=== PATIENT | female | born 1955 | race Caucasian/White ===

== ENCOUNTER 2019-03-28 22:24 | Emergency (ER) | payer MEDICARE, OTHER ==
--- NOTE | 2019-03-28 22:50 | ED Physician Chart ---
ED Chief Complaint/HPI - Patient Information Date Seen:: 03/28/19 Time Seen:: 22:45 Chief Complaint:: acting out at the custodial History of Present Illness:: this is a 63 yo custodial patient sent here for evaluation and treatment. she refuses labs, x-rays and has requested to return to her custodial....willing to sign out ama. she is oriented times four and demanded to b sent back yon. Allergies:: Allergies Allergy/AdvReac Type Severity Reaction Status Date / Time No Known Allergies Allergy Verified 03/28/19 22:40 Historian:: Patient, Medical Records Review:: Nurse's Note Reviewed ED Review of Systems - Review of Systems General/Constitutional: No fever, No chills, No weight loss, No weakness, No diaphoresis, No edema, No loss of appetite Skin: No skin lesions, No rash, No bruising Head: No headache, No light-headedness Eyes: No loss of vision, No pain, No diplopia ENT: No earache, No nasal drainage, No sore throat, No tinnitus Neck: No neck pain, No swelling, No thyromegaly, No stiffness, No mass noted Cardio Vascular: No chest pain, No palpitations, No PND, No orthopnea, No edema Pulmonary: No SOB, No cough, No sputum, No wheezing GI: No nausea, No vomiting, No diarrhea, No pain, No melena, No hematochezia, No constipation, No hematemesis G/U: No dysuria, No frequency, No hematuria Musculoskeletal: No bone or joint pain, No back pain, No muscle pain Endocrine: No polyuria, No polydipsia Psychiatric: Prior psych history, No prior psych history, No depression, Anxiety , No anxiety, No suicidal ideation Hematopoietic: No bruising, No lymphadenopathy Allergic/Immuno: No urticaria, No angioedema Neurological: No syncope, No focal symptoms, No weakness, No paresthesia, No headache, No seizure, No dizziness, No confusion, No vertigo ED Past Medical History - Past Medical History Past Medical History: Arthritis, Other (depression and bipolar) ED Physical Exam - Physical Examination General/Constitutional: Awake, Well-developed, well-nourished, Alert, No distress, GCS 15, Non-toxic appearing, Ambulatory Other Gen/Cons comments:: loud and uncooperative. Head: Atraumatic Eyes: Lids, conjuctiva normal, PERRL, EOMI Skin: Nl inspection, No rash, No skin lesions, No ecchymosis, Well hydrated, No lymphadenopathy ENMT: External ears, nose nl, Nasal exam nl, Lips, teeth, gums nl Neck: Nontender, Full ROM w/o pain, No JVD, No nuchal rigidity, No bruit, No mass, No stridor Respiratory: Nl effort/Exclusion, Clear to Auscultation, No Wheeze/Rhonchi/Rales Cardio Vascular: RRR, No murmur, gallop, rubs, NL S1 S2 GI: No tenderness/rebounding/guarding, No organomegaly, No hernia, Normal BS's, Nondistended, No mass/bruits, No McBurney tenderness : No CVA tenderness Extremities: No tenderness or effusion, Full ROM, normal strength in all extremities, No edema, Normal digits & nails Neuro/Psych: Alert/oriented, DTR's symmetric, Normal sensory exam, Normal motor strength, Judgement/insight normal, Mood normal (depressed), Normal gait, No focal deficits Misc: Normal back, No paraspinal tenderness ED Assessment - Assessment General Assessment: psychosis ED Septic Shock - . Is Septic Shock (SBP<90, OR Lactate>4 mmol\L) present?: No ED Reassessment (Disposition) - Reassessment Reassessment Condition:: Unchanged - Diagnosis Diagnosis:: bipolar depression - Aftercare/Follow up Instructions Aftercare/Follow-Up Instructions:: Counseled pt regarding lab results/diagnosis & need follow up, Refer to Discharge Instructions, Counseled pt & family regarding lab results/diagnosis & need follow up - Patient Disposition Discharge/Transfer:: returned to [facility] Condition at Disposition:: Unchanged
== END 2019-03-28 22:50 ==
LOC: ER 22:24
DX: F32.9 Major depressive disorder, single episode, unspecified (principal); F29 Unspecified psychosis not due to a substance or known physiological condition; M19.90 Unspecified osteoarthritis, unspecified site

== ENCOUNTER 2019-03-30 15:18 | Inpatient (IN) | payer MEDICARE, OTHER ==
[2019-03-30 15:46] LABS: % BASOPHILS 0.3 % (0.0-2.0); % EOSINOPHILS 2.2 % (0.0-5.0); % LYMPHOCYTES 26.1 % (20.0-50.0); % MONOCYTES 5.8 % (2.0-10.0); % NEUTROPHILS 65.6 % (40.0-80.0); EOSINOPHILE ABSOLUTE 0.2 Th/cmm (0.1-0.4); HEMATOCRIT 37.7 % (41.0-60); HEMOGLOBIN 12.9 gm/dL (12-16); LYMPHOCYTE ABSOLUTE 2.8 Th/cmm (1.5-3.0); MEAN CELL VOLUME 91.1 fl (81-100); MEAN CORPUSCULAR HEMOGLOBIN 31.2 pg (27.0-31.0); MEAN CORPUSCULAR HGB CONC 34.2 pg (28.0-36.0); MONOCYTE ABSOLUTE 0.6 Th/cmm (0.3-1.0); NEUTROPHILE ABSOLUTE 7.1 Th/cmm (1.8-8.0); PLATELET COUNT 243 Th/cmm (150-400); RED BLOOD COUNT 4.14 Mil/cmm (3.80-5.10); WHITE BLOOD COUNT 10.7 Th/cmm (4.8-10.8)
[2019-03-30 16:03] LABS: ALB/GLOB RATIO 1.5 (1.0-1.8); ALBUMIN 3.8 gm/dL (3.7-5.3); ALKALINE PHOSPHATASE 73 U/L (34-104); ANION GAP 10.7 (7.0-16.0); BILIRUBIN,TOTAL 0.2 mg/dL (0.3-1.0); BUN - UREA NITROGEN 10 mg/dL (7-25); CALCIUM SERUM 8.7 mg/dL (8.6-10.3); CARBON DIOXIDE 27.3 mEq/L (21.0-31.0); CHLORIDE 102 mEq/L (98-107); CHOLESTEROL 170 mg/dL (<200); CREATININE - SERUM 0.7 mg/dL (0.6-1.2); GFR AFRICAN-AMERICAN > 60.0 ml/min (>90); GFR NON AFRICAN-AMERICAN > 60.0 ml/min; GLUCOSE 95 mg/dL (70-105); HDL -HIGH DENSITY LIPOPROTEIN 60 mg/dL (23-92); SGOT 13 U/L (13-39); SGPT/ALT 11 U/L (7-52); SODIUM SERUM 136 mEq/L (136-145); TOTAL PROTEIN,SERUM 6.3 gm/dL (6.0-8.3); TRIGLYCERIDES 196 mg/dL (<150)
[2019-03-30] MEDS ORDERED: oxyCODONE 5 mg IR Tab PO ONE (17:06)
--- NOTE | 2019-03-30 17:34 | ED Physician Chart ---
ED Chief Complaint/HPI - Patient Information Date Seen:: 03/30/19 Time Seen:: 16:00 Chief Complaint:: increase aggressive behavior History of Present Illness:: ongoing problem states told needs to have meds adjusted Allergies:: Allergies Allergy/AdvReac Type Severity Reaction Status Date / Time No Known Allergies Allergy Verified 03/30/19 15:30 Vitals:: Vital Signs - 8 hr 03/30/19 15:41 Temp 98.1 F HR 93 RR 18 BP 125/86 O2 Sat % 98 Historian:: Patient Review:: Nurse's Note Reviewed ED Review of Systems - Review of Systems General/Constitutional: No fever Skin: No skin lesions Head: No headache Eyes: No loss of vision ENT: No earache Neck: No neck pain Cardio Vascular: No chest pain Pulmonary: No SOB GI: No vomiting Musculoskeletal: No bone or joint pain Endocrine: No polyuria Psychiatric: Prior psych history Hematopoietic: No bruising Allergic/Immuno: No urticaria Neurological: No syncope ED Past Medical History - Past Medical History Past Medical History: Other (schizo bipolar) Family Medical History - Family Member Mother History Unknown: Yes ED Physical Exam - Physical Examination General/Constitutional: Alert, No distress, GCS 15, Non-toxic appearing, Ambulatory Eyes: Lids, conjuctiva normal Skin: Nl inspection ENMT: External ears, nose nl Neck: Nontender Respiratory: Nl effort/Exclusion Cardio Vascular: RRR GI: No tenderness/rebounding/guarding : No CVA tenderness Extremities: No tenderness or effusion Neuro/Psych: Alert/oriented, No focal deficits Misc: Normal back ED Labs/Radiology/EKG Results - Lab Results Results: Laboratory Tests 03/30/19 03/30/19 15:43 15:43 WBC 10.7 RBC 4.14 Hgb 12.9 Hct 37.7 L MCV 91.1 MCH 31.2 H MCHC Differential 34.2 RDW 16.0 Plt Count 243 MPV 8.2 Neutrophils % 65.6 Lymphocytes % 26.1 Monocytes % 5.8 Eosinophils % 2.2 Basophils % 0.3 Sodium 136 Potassium 4.0 Chloride 102 Carbon Dioxide 27.3 Anion Gap 10.7 BUN 10 Creatinine 0.7 Est GFR ( Amer) > 60.0 Est GFR (Non-Af Amer) > 60.0 BUN/Creatinine Ratio 14.3 Glucose 95 Calcium 8.7 Total Bilirubin 0.2 L AST 13 ALT 11 Alkaline Phosphatase 73 Total Protein 6.3 Albumin 3.8 Globulin 2.5 Albumin/Globulin Ratio 1.5 Triglycerides 196 H Cholesterol 170 LDL Cholesterol Direct 90 HDL Cholesterol 60 ED Assessment - Assessment General Assessment: needs psyche inpatient ED Septic Shock - . Is Septic Shock (SBP<90, OR Lactate>4 mmol\L) present?: No - <6hrs of presentation: Vital Signs: Vital Signs - 8 hr 03/30/19 15:41 Temp 98.1 F HR 93 RR 18 BP 125/86 O2 Sat % 98 ED Reassessment (Disposition) - Patient Disposition Discharge/Transfer:: Acute Care w/in this hosp (stable transfer to inpatient)
[2019-03-30] MEDS ORDERED: OXYCODONE HCL 10 MG PO PRN (18:19)
[2019-03-30] MEDS ORDERED: Non-Formulary Item 1 EA (Gabapentin [Neurontin] 600 MG) PO SCH (18:30)
--- NOTE | 2019-03-30 18:42 | History & Physical ---
ADMIT DATE: HISTORY OF PRESENT ILLNESS: The patient is a 63-year-old female with long history of COPD, degenerative joint disease, a recent pelvic bone fracture, psychosis, admitted to [facility] under Dr. Wisdom's service for evaluation and treatment. The patient has chest pain, shortness of breath. Still has pain on the pelvic area. PAST MEDICAL HISTORY: Significant for COPD, pelvic bone fracture, chronic pain. PAST SURGICAL HISTORY: No recent surgery. ALLERGIES: None. MEDICATIONS: Follow admission reconciliation. SOCIAL HISTORY: Chronic smoker. No alcohol or drug. FAMILY HISTORY: Noncontributory. REVIEW OF SYSTEMS: RENAL SYSTEM: No history of chronic immune disorder. CARDIOVASCULAR SYSTEM: No coronary artery disease. ENDOCRINE SYSTEM: No diabetes or thyroid problem. GASTROINTESTINAL SYSTEM: No upper or lower GI bleed. NEUROLOGICAL SYSTEM: No seizure disorder. SKELETOMUSCULAR SYSTEM: She has recent pelvic bone fracture. HEMATOLOGICAL: No bleeding tendencies. RESPIRATORY SYSTEM: She has COPD. GENITOURINARY SYSTEM: No hematuria. PHYSICAL EXAMINATION: GENERAL: She is awake, alert, oriented. VITAL SIGNS: Temperature 98.1, heart rate 80, blood pressure 120/76. Chest, mild diminished breathing sound. HEART: S1, S2 normal. ABDOMEN: Soft, bowel sounds positive. EXTREMITIES: No edema. NEUROLOGICAL: She is awake, alert. Gait unstable. LABORATORY DATA: White blood cell 10.7, hemoglobin 12.9, hematocrit 37.7, platelet 243. Sodium 136, potassium 4, BUN 10, creatinine 0.7. ASSESSMENT: 1. Chronic obstructive pulmonary disease. 2. Recent pelvic bone fracture. 3. Chronic back pain. 4. Psychosis. PLAN: The patient in the hospital under Dr. Wisdom's service. Medical problem addressed during hospitalization is psychosis. Medical problems addressed at discharge cessation of smoking and chronic back pain. The patient is medically stable for activity. Thank you Dr. Wisdom for asking me to see the patient. The patient is a full code. JOB# [id number]
[2019-03-30] MEDS ORDERED: Maalox 30 mL Cup PO PRN (20:08)
[2019-03-30] MEDS ORDERED: Magnesium Hydroxide (MOM) 30 mL UDC PO PRN (20:08)
[2019-03-30 21:53] VITALS: BP 141/81
[2019-03-31] MEDS: oxyCODONE 5 mg IR Tab PO PRN ×4 (02:12→21:12)
[2019-03-31] MEDS: Multivitamin Tab PO SCH (08:36)
--- NOTE | 2019-03-31 22:48 | Internal Medicine Prog Note ---
Internal Medicine Subjective - Subjective Service Date: 03/31/19 Patient seen and examined:: with staff Patient is:: awake, verbal, in bed, confused Per staff patient has:: no adverse event Internal Medicine Objective - Results Result Diagrams: 03/30/19 15:43 03/30/19 15:43 Recent Labs: Laboratory Last Values WBC 10.7 Th/cmm (4.8-10.8) 03/30/19 15:43 RBC 4.14 Mil/cmm (3.80-5.10) 03/30/19 15:43 Hgb 12.9 gm/dL (12-16) 03/30/19 15:43 Hct 37.7 % (41.0-60) L 03/30/19 15:43 MCV 91.1 fl (81-100) 03/30/19 15:43 MCH 31.2 pg (27.0-31.0) H 03/30/19 15:43 MCHC Differential 34.2 pg (28.0-36.0) 03/30/19 15:43 RDW 16.0 % (11.5-20.0) 03/30/19 15:43 Plt Count 243 Th/cmm (150-400) 03/30/19 15:43 MPV 8.2 fl 03/30/19 15:43 Neutrophils % 65.6 % (40.0-80.0) 03/30/19 15:43 Lymphocytes % 26.1 % (20.0-50.0) 03/30/19 15:43 Monocytes % 5.8 % (2.0-10.0) 03/30/19 15:43 Eosinophils % 2.2 % (0.0-5.0) 03/30/19 15:43 Basophils % 0.3 % (0.0-2.0) 03/30/19 15:43 Sodium 136 mEq/L (136-145) 03/30/19 15:43 Potassium 4.0 mEq/L (3.5-5.1) 03/30/19 15:43 Chloride 102 mEq/L (98-107) 03/30/19 15:43 Carbon Dioxide 27.3 mEq/L (21.0-31.0) 03/30/19 15:43 Anion Gap 10.7 (7.0-16.0) 03/30/19 15:43 BUN 10 mg/dL (7-25) 03/30/19 15:43 Creatinine 0.7 mg/dL (0.6-1.2) 03/30/19 15:43 Est GFR ( Amer) > 60.0 ml/min (>90) 03/30/19 15:43 Est GFR (Non-Af Amer) > 60.0 ml/min 03/30/19 15:43 BUN/Creatinine Ratio 14.3 03/30/19 15:43 Glucose 95 mg/dL (70-105) 03/30/19 15:43 Calcium 8.7 mg/dL (8.6-10.3) 03/30/19 15:43 Total Bilirubin 0.2 mg/dL (0.3-1.0) L 03/30/19 15:43 AST 13 U/L (13-39) 03/30/19 15:43 ALT 11 U/L (7-52) 03/30/19 15:43 Alkaline Phosphatase 73 U/L (34-104) 03/30/19 15:43 Total Protein 6.3 gm/dL (6.0-8.3) 03/30/19 15:43 Albumin 3.8 gm/dL (3.7-5.3) 03/30/19 15:43 Globulin 2.5 gm/dL 03/30/19 15:43 Albumin/Globulin Ratio 1.5 (1.0-1.8) 03/30/19 15:43 Triglycerides 196 mg/dL (<150) H 03/30/19 15:43 Cholesterol 170 mg/dL (<200) 03/30/19 15:43 LDL Cholesterol Direct 90 mg/dL (75-193) 03/30/19 15:43 HDL Cholesterol 60 mg/dL (23-92) 03/30/19 15:43 TSH 0.47 uIU/ml (0.34-5.60) 03/30/19 15:43 RPR NONREACTIVE (NONREACTIVE) 03/30/19 15:43 - Physical Exam Vitals and I&O: Vital Signs Temp 97 F 03/31/19 20:11 Pulse 91 03/31/19 20:11 Resp 20 03/31/19 20:11 BP 155/79 03/31/19 20:11 Pulse Ox 95 03/31/19 20:11 Intake & Output 03/31/19 03/31/19 04/01/19 06:59 18:59 06:59 Intake Total 240 900 120 Balance 240 900 120 Weight (lbs) 90.718 kg Intake: Oral 240 900 120 Other: # Voids 1 3 3 # Bowel Movements 0 0 Active Medications: Current Medications Acetaminophen (Tylenol) 650 mg PO Q6H PRN PRN Reason: Pain (Mild) Stop: 05/29/19 18:18 Last Admin: 03/31/19 11:48 Dose: 650 mg Al Hydrox/Mg Hydrox/Simethicone (Maalox) 30 ml PO Q4HR PRN PRN Reason: GI DISTRESS Stop: 05/29/19 20:07 Gabapentin (Neurontin) 600 mg PO Q8HR MONA Stop: 05/29/19 20:59 Last Admin: 03/31/19 20:57 Dose: 600 mg Ibuprofen (Motrin) 600 mg PO Q8H PRN PRN Reason: Pain (Moderate) Stop: 05/29/19 18:18 Last Admin: 03/31/19 13:44 Dose: 600 mg Lorazepam (Ativan) 0.5 mg PO Q4HR PRN; Protocol PRN Reason: Agitation Stop: 04/29/19 20:07 Last Admin: 03/31/19 20:59 Dose: 0.5 mg Magnesium Hydroxide (Milk Of Magnesia) 30 ml PO HS PRN PRN Reason: Constipation Multivitamins/Vitamin C (Theragran) 1 tab PO DAILY MONA Stop: 05/30/19 08:59 Last Admin: 03/31/19 08:36 Dose: 1 tab Oxycodone HCl (Oxycontin) 10 mg PO 1730 [facility] Stop: 05/29/19 17:29 Last Admin: 03/31/19 16:45 Dose: Not Given Oxycodone HCl (Oxycodone Ir) 10 mg PO Q6H PRN PRN Reason: SEVERE PAIN (LEVEL 7-10) Stop: 05/29/19 22:14 Last Admin: 03/31/19 21:12 Dose: 10 mg Risperidone (Risperdal) 1 mg PO DAILY [facility]; Protocol Stop: 05/30/19 08:59 Last Admin: 03/31/19 08:36 Dose: 1 mg Risperidone (Risperdal) 2 mg PO HS [facility]; Protocol Stop: 05/30/19 20:59 Last Admin: 03/31/19 21:01 Dose: 2 mg Trazodone HCl (Desyrel) 50 mg PO HS [facility]; Protocol Stop: 05/30/19 20:59 Last Admin: 03/31/19 20:58 Dose: 50 mg Venlafaxine HCl (Effexor) 75 mg PO DAILY [facility]; Protocol Stop: 05/30/19 08:59 Last Admin: 03/31/19 08:36 Dose: 75 mg General: alert HEENT: NC/AT, PERRLA, EOMI, anicteric sclerae, throat clear Neck: Supple, No JVD, No thyromegaly, +2 carotid pulse wo bruit, No LAD Lungs: CTAB Cardiovascular: RRR, Normal S1, Normal S2, without murmur Abdomen: soft, non-tender, non-distended Extremities: clear Neurological: alert, unsteady Internal Medicine Assmt/Plan - Assessment Assessment: 1.HTN. 2.COPD. 3.DJD. 4.PSYCHOSIS - Plan Plan: CONTINUE ON CURRENT MEDICATION AND DIET.
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
[2019-04-01] MEDS: oxyCODONE 5 mg IR Tab PO PRN ×2 (05:01→11:32)
[2019-04-01] MEDS: Multivitamin Tab PO SCH (08:36)
[2019-04-01] MEDS ORDERED: Haloperidol Lactate 5 mg/mL 1mL Vial ONE (11:45)
[2019-04-01] MEDS ORDERED: Haloperidol Lactate 5 mg/mL 1mL Vial IM ONE ×2 (11:50→16:27)
--- NOTE | 2019-04-01 19:58 | Internal Medicine Prog Note ---
Internal Medicine Subjective - Subjective Service Date: 04/01/19 Patient seen and examined:: without staff (SHE FEELS WELL) Patient is:: awake, verbal, in bed, confused Per staff patient has:: no adverse event Internal Medicine Objective - Results Result Diagrams: 03/30/19 15:43 03/30/19 15:43 Recent Labs: Laboratory Last Values WBC 10.7 Th/cmm (4.8-10.8) 03/30/19 15:43 RBC 4.14 Mil/cmm (3.80-5.10) 03/30/19 15:43 Hgb 12.9 gm/dL (12-16) 03/30/19 15:43 Hct 37.7 % (41.0-60) L 03/30/19 15:43 MCV 91.1 fl (81-100) 03/30/19 15:43 MCH 31.2 pg (27.0-31.0) H 03/30/19 15:43 MCHC Differential 34.2 pg (28.0-36.0) 03/30/19 15:43 RDW 16.0 % (11.5-20.0) 03/30/19 15:43 Plt Count 243 Th/cmm (150-400) 03/30/19 15:43 MPV 8.2 fl 03/30/19 15:43 Neutrophils % 65.6 % (40.0-80.0) 03/30/19 15:43 Lymphocytes % 26.1 % (20.0-50.0) 03/30/19 15:43 Monocytes % 5.8 % (2.0-10.0) 03/30/19 15:43 Eosinophils % 2.2 % (0.0-5.0) 03/30/19 15:43 Basophils % 0.3 % (0.0-2.0) 03/30/19 15:43 Sodium 136 mEq/L (136-145) 03/30/19 15:43 Potassium 4.0 mEq/L (3.5-5.1) 03/30/19 15:43 Chloride 102 mEq/L (98-107) 03/30/19 15:43 Carbon Dioxide 27.3 mEq/L (21.0-31.0) 03/30/19 15:43 Anion Gap 10.7 (7.0-16.0) 03/30/19 15:43 BUN 10 mg/dL (7-25) 03/30/19 15:43 Creatinine 0.7 mg/dL (0.6-1.2) 03/30/19 15:43 Est GFR ( Amer) > 60.0 ml/min (>90) 03/30/19 15:43 Est GFR (Non-Af Amer) > 60.0 ml/min 03/30/19 15:43 BUN/Creatinine Ratio 14.3 03/30/19 15:43 Glucose 95 mg/dL (70-105) 03/30/19 15:43 Calcium 8.7 mg/dL (8.6-10.3) 03/30/19 15:43 Total Bilirubin 0.2 mg/dL (0.3-1.0) L 03/30/19 15:43 AST 13 U/L (13-39) 03/30/19 15:43 ALT 11 U/L (7-52) 03/30/19 15:43 Alkaline Phosphatase 73 U/L (34-104) 03/30/19 15:43 Total Protein 6.3 gm/dL (6.0-8.3) 03/30/19 15:43 Albumin 3.8 gm/dL (3.7-5.3) 03/30/19 15:43 Globulin 2.5 gm/dL 03/30/19 15:43 Albumin/Globulin Ratio 1.5 (1.0-1.8) 03/30/19 15:43 Triglycerides 196 mg/dL (<150) H 03/30/19 15:43 Cholesterol 170 mg/dL (<200) 03/30/19 15:43 LDL Cholesterol Direct 90 mg/dL (75-193) 03/30/19 15:43 HDL Cholesterol 60 mg/dL (23-92) 03/30/19 15:43 TSH 0.47 uIU/ml (0.34-5.60) 03/30/19 15:43 RPR NONREACTIVE (NONREACTIVE) 03/30/19 15:43 - Physical Exam Vitals and I&O: Vital Signs Temp 98.4 F 04/01/19 14:13 Pulse 94 04/01/19 14:13 Resp 20 04/01/19 14:13 BP 148/80 04/01/19 14:13 Pulse Ox 97 04/01/19 14:13 Intake & Output 04/01/19 04/01/19 04/02/19 06:59 18:59 06:59 Intake Total 120 Balance 120 Intake: Oral 120 Other: # Voids 3 # Bowel Movements 0 Active Medications: Current Medications Acetaminophen (Tylenol) 650 mg PO Q6H PRN PRN Reason: Pain (Mild) Stop: 05/29/19 18:18 Last Admin: 04/01/19 02:26 Dose: 650 mg Al Hydrox/Mg Hydrox/Simethicone (Maalox) 30 ml PO Q4HR PRN PRN Reason: GI DISTRESS Stop: 05/29/19 20:07 Gabapentin (Neurontin) 600 mg PO Q8HR [facility]A Stop: 05/29/19 20:59 Last Admin: 04/01/19 13:00 Dose: 600 mg Ibuprofen (Motrin) 600 mg PO Q8H PRN PRN Reason: Pain (Moderate) Stop: 05/29/19 18:18 Last Admin: 04/01/19 08:36 Dose: 600 mg Lorazepam (Ativan) 1 mg PO Q4HR PRN; Protocol PRN Reason: Agitation Stop: 04/29/19 20:07 Last Admin: 04/01/19 16:56 Dose: 1 mg Magnesium Hydroxide (Milk Of Magnesia) 30 ml PO HS PRN PRN Reason: Constipation Multivitamins/Vitamin C (Theragran) 1 tab PO DAILY [facility] Stop: 05/30/19 08:59 Last Admin: 04/01/19 08:36 Dose: 1 tab Oxycodone HCl (Oxycontin) 10 mg PO 1730 [facility] Stop: 05/29/19 17:29 Last Admin: 04/01/19 16:57 Dose: 10 mg Oxycodone HCl (Oxycodone Ir) 10 mg PO Q6H PRN PRN Reason: SEVERE PAIN (LEVEL 7-10) Stop: 05/29/19 22:14 Last Admin: 04/01/19 11:32 Dose: 10 mg Risperidone (Risperdal) 2 mg PO HS [facility]; Protocol Stop: 05/30/19 20:59 Last Admin: 03/31/19 21:01 Dose: 2 mg Risperidone (Risperdal) 2 mg PO DAILY [facility]; Protocol Stop: 06/01/19 08:59 Trazodone HCl (Desyrel) 50 mg PO HS [facility]; Protocol Stop: 05/30/19 20:59 Last Admin: 03/31/19 20:58 Dose: 50 mg Venlafaxine HCl (Effexor) 75 mg PO DAILY [facility]; Protocol Stop: 05/30/19 08:59 Last Admin: 04/01/19 08:35 Dose: 75 mg General: alert HEENT: NC/AT, PERRLA, EOMI, anicteric sclerae, throat clear Neck: Supple, No JVD, No thyromegaly, +2 carotid pulse wo bruit, No LAD Lungs: CTAB Cardiovascular: RRR, Normal S1, Normal S2, without murmur Abdomen: soft, non-tender, non-distended Extremities: clear Neurological: alert, unsteady Internal Medicine Assmt/Plan - Assessment Assessment: 1.HTN. 2.COPD. 3.DJD. 4.PSYCHOSIS - Plan Plan: CONTINUE ON CURRENT MEDICATION AND DIET.
--- NOTE | 2019-04-01 23:58 | Progress Notes ---
DATE: 04/01/2019 SUBJECTIVE: The patient slept for about 5-6 hours, easily agitated, irritated, demanding, yelling to the top of her lungs, cursing at staff, telling staff that she is a customer and they have to listen to everything she has to say, banging, screaming, flailing her arms, trying to hit staff, given emergency order of medications earlier, ongoing safety concerns. The patient is extremely agitated, extremely aggressive, very impulsive, highly unpredictable, given dosing of Haldol and Benadryl. She will likely need a medication adjustment. PLAN: I will be increasing her dosing, for example, of Ativan. JOB# [id number]
[2019-04-02] MEDS: oxyCODONE 5 mg IR Tab PO PRN ×2 (04:23→10:51)
[2019-04-02] MEDS: Multivitamin Tab PO SCH (09:07)
--- NOTE | 2019-04-02 17:48 | Internal Medicine Prog Note ---
Internal Medicine Subjective - Subjective Service Date: 04/02/19 Patient seen and examined:: without staff (she feels well) Patient is:: awake, verbal, in bed, confused Per staff patient has:: no adverse event Internal Medicine Objective - Results Result Diagrams: 03/30/19 15:43 03/30/19 15:43 Recent Labs: Laboratory Last Values WBC 10.7 Th/cmm (4.8-10.8) 03/30/19 15:43 RBC 4.14 Mil/cmm (3.80-5.10) 03/30/19 15:43 Hgb 12.9 gm/dL (12-16) 03/30/19 15:43 Hct 37.7 % (41.0-60) L 03/30/19 15:43 MCV 91.1 fl (81-100) 03/30/19 15:43 MCH 31.2 pg (27.0-31.0) H 03/30/19 15:43 MCHC Differential 34.2 pg (28.0-36.0) 03/30/19 15:43 RDW 16.0 % (11.5-20.0) 03/30/19 15:43 Plt Count 243 Th/cmm (150-400) 03/30/19 15:43 MPV 8.2 fl 03/30/19 15:43 Neutrophils % 65.6 % (40.0-80.0) 03/30/19 15:43 Lymphocytes % 26.1 % (20.0-50.0) 03/30/19 15:43 Monocytes % 5.8 % (2.0-10.0) 03/30/19 15:43 Eosinophils % 2.2 % (0.0-5.0) 03/30/19 15:43 Basophils % 0.3 % (0.0-2.0) 03/30/19 15:43 Sodium 136 mEq/L (136-145) 03/30/19 15:43 Potassium 4.0 mEq/L (3.5-5.1) 03/30/19 15:43 Chloride 102 mEq/L (98-107) 03/30/19 15:43 Carbon Dioxide 27.3 mEq/L (21.0-31.0) 03/30/19 15:43 Anion Gap 10.7 (7.0-16.0) 03/30/19 15:43 BUN 10 mg/dL (7-25) 03/30/19 15:43 Creatinine 0.7 mg/dL (0.6-1.2) 03/30/19 15:43 Est GFR ( Amer) > 60.0 ml/min (>90) 03/30/19 15:43 Est GFR (Non-Af Amer) > 60.0 ml/min 03/30/19 15:43 BUN/Creatinine Ratio 14.3 03/30/19 15:43 Glucose 95 mg/dL (70-105) 03/30/19 15:43 Calcium 8.7 mg/dL (8.6-10.3) 03/30/19 15:43 Total Bilirubin 0.2 mg/dL (0.3-1.0) L 03/30/19 15:43 AST 13 U/L (13-39) 03/30/19 15:43 ALT 11 U/L (7-52) 03/30/19 15:43 Alkaline Phosphatase 73 U/L (34-104) 03/30/19 15:43 Total Protein 6.3 gm/dL (6.0-8.3) 03/30/19 15:43 Albumin 3.8 gm/dL (3.7-5.3) 03/30/19 15:43 Globulin 2.5 gm/dL 03/30/19 15:43 Albumin/Globulin Ratio 1.5 (1.0-1.8) 03/30/19 15:43 Triglycerides 196 mg/dL (<150) H 03/30/19 15:43 Cholesterol 170 mg/dL (<200) 03/30/19 15:43 LDL Cholesterol Direct 90 mg/dL (75-193) 03/30/19 15:43 HDL Cholesterol 60 mg/dL (23-92) 03/30/19 15:43 TSH 0.47 uIU/ml (0.34-5.60) 03/30/19 15:43 RPR NONREACTIVE (NONREACTIVE) 03/30/19 15:43 - Physical Exam Vitals and I&O: Vital Signs Temp 97.2 F 04/02/19 15:26 Pulse 93 04/02/19 15:26 Resp 18 04/02/19 15:26 BP 130/76 04/02/19 15:26 Pulse Ox 96 04/02/19 15:26 Intake & Output 04/01/19 04/02/19 04/02/19 18:59 06:59 18:59 Intake Total 120 Balance 120 Intake: Oral 120 Other: # Voids 3 Active Medications: Current Medications Acetaminophen (Tylenol) 650 mg PO Q6H PRN PRN Reason: Pain (Mild) Stop: 05/29/19 18:18 Last Admin: 04/02/19 15:05 Dose: 650 mg Al Hydrox/Mg Hydrox/Simethicone (Maalox) 30 ml PO Q4HR PRN PRN Reason: GI DISTRESS Stop: 05/29/19 20:07 Gabapentin (Neurontin) 600 mg PO Q8HR MONA Stop: 05/29/19 20:59 Last Admin: 04/02/19 13:00 Dose: 600 mg Ibuprofen (Motrin) 600 mg PO Q8H PRN PRN Reason: Pain (Moderate) Stop: 05/29/19 18:18 Last Admin: 04/02/19 17:01 Dose: 600 mg Lorazepam (Ativan) 1 mg PO Q4HR PRN; Protocol PRN Reason: Agitation Stop: 04/29/19 20:07 Last Admin: 04/02/19 15:05 Dose: 1 mg Magnesium Hydroxide (Milk Of Magnesia) 30 ml PO HS PRN PRN Reason: Constipation Multivitamins/Vitamin C (Theragran) 1 tab PO DAILY MONA Stop: 05/30/19 08:59 Last Admin: 04/02/19 09:07 Dose: 1 tab Oxycodone HCl (Oxycontin) 10 mg PO 1730 MONA Stop: 05/29/19 17:29 Last Admin: 04/02/19 17:00 Dose: 10 mg Oxycodone HCl (Oxycodone Ir) 10 mg PO Q6H PRN PRN Reason: SEVERE PAIN (LEVEL 7-10) Stop: 05/29/19 22:14 Last Admin: 04/02/19 10:51 Dose: 10 mg Risperidone (Risperdal) 2 mg PO HS MONA; Protocol Stop: 05/30/19 20:59 Last Admin: 04/01/19 21:22 Dose: 2 mg Risperidone (Risperdal) 2 mg PO DAILY MONA; Protocol Stop: 06/01/19 08:59 Last Admin: 04/02/19 09:00 Dose: 2 mg Trazodone HCl (Desyrel) 50 mg PO HS MONA; Protocol Stop: 05/30/19 20:59 Last Admin: 04/01/19 21:23 Dose: 50 mg Venlafaxine HCl (Effexor) 75 mg PO DAILY MONA; Protocol Stop: 05/30/19 08:59 Last Admin: 04/02/19 09:08 Dose: 75 mg General: alert HEENT: NC/AT, PERRLA, EOMI, anicteric sclerae, throat clear Neck: Supple, No JVD, No thyromegaly, +2 carotid pulse wo bruit, No LAD Lungs: CTAB Cardiovascular: RRR, Normal S1, Normal S2, without murmur Abdomen: soft, non-tender, non-distended Extremities: clear Neurological: alert, unsteady Internal Medicine Assmt/Plan - Assessment Assessment: 1.HTN. 2.COPD. 3.DJD. 4.PSYCHOSIS - Plan Plan: CONTINUE ON CURRENT MEDICATION AND DIET. Nutritional Asmnt/Malnutr-PDOC - Dietary Evaluation Malnutrition Findings (Please click <Entered> for more info): Nutritional Asmnt/Malnutrition Start: 04/02/19 13: 11 Text: Status: Active Freq: Protocol: Document 04/02/19 13:11 CHRISTY (Rec: 04/02/19 13:15 CHRISTY [email or web address]) Nutritional Asmnt/Malnutrition Patient General Information Nutritional Screening Moderate Risk Diagnosis Psychosis Pertinent Medical Hx/Surgical Hx COPD, Degenerative joint disease, recent pelvic bone fracture, psychosis, chronic pain, Schizo bipolar Subjective Information Pt is a 63-year-old female admitted on 03/30 c/o increased aggressive behavior. Per Meal/ Nutrition Activity Record, Pt PO intake 100% meals since admission. HT: 5 WT: 200 LB (90.91 kg) ADJ BW: 63.66 kg BMI: 39.10 (Obese) GI: WNL, Soft, Non-Tender BM: Not noted I/O: 120/Not Noted Skin: WNL, Intact Nawaf: 20 Diet Order: Regular Estimated Energy Needs: (Obese , ADJ BW) 4889-9878 kcals (20-25 kcals/ kg) 51-58g Pro (0.8-0.9 g/kg) 9553-6254 ml (25-30 ml/kg) Pt is eating 100% of meals Per Meal/Nutrition Activity Record. Dietary is currently providing an estimated 2613 kcals and 114 gm Pro to meet 100% kcal and 100% Pro needs. Current Diet Order/ Nutrition Support Regular Pertinent Medications Maalox (PRN), MOM (PRN), Theragran Pertinent Labs 03/30: Hgb/Hct 12.9/37.7 Nutritional Hx/Data Height 1.52 m Height (Calculated Centimeters) 152.4 Current Weight (lbs) 90.718 kg Weight (Calculated Kilograms) 90.7 Weight (Calculated Grams) 78400.5 Div[place] Body Weight 45.5 kg % Divide Body Weight 200 Body Mass Index (BMI) 39.0 Weight Status Obese GI Symptoms GI Symptoms None Last BM Not noted Skin Integrity/Comment: WNL, Intact Nawaf: 20 Current %PO Good (75-100%) Estimated Nutritional Goals BEE in Kcals: Adj wt of IBW Calories/Kcals/Kg 20-25 Kcals Calculated 3425-3942 Protein: Adj wt of IBW Protein g/k.8-0.9 Protein Calculated 51-58 Fluid: ml 4736-0950 ml (25-30 ml/kg) Nutritional Problem No current Nutrition Prob Problem No nutrition diagnosis at this time. Etiology N/A Signs/Symptoms: N/A Malnutrition Related to Morbid Obesity Malnutrition related to morbid obesity No Intervention/Recommendation Comments 1.Continue with regular diet as ordered. Expected Outcomes/Goals Expected Outcomes/Goals 1.PO intake to continue to meet >75% of nutritional needs . 2.Monitor PO intake, wt, nutrition related labs, and skin integrity. 3.F/U as low risk in 7 days,
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
[2019-04-03] MEDS: oxyCODONE 5 mg IR Tab PO PRN ×4 (01:27→20:18)
[2019-04-03] MEDS: Multivitamin Tab PO SCH (08:46)
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
[2019-04-04] MEDS: oxyCODONE 5 mg IR Tab PO PRN ×2 (04:41→10:55)
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
[2019-04-04] MEDS: Multivitamin Tab PO SCH (08:30)
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
[2019-04-05] MEDS: oxyCODONE 5 mg IR Tab PO PRN ×2 (05:02→11:02)
[2019-04-05] MEDS: Multivitamin Tab PO SCH (08:01)
--- NOTE | 2019-04-05 08:05 | Progress Notes ---
DATE: 04/05/2019 SUBJECTIVE: The patient is currently calm right now, somewhat demanding, focused on pain medications, demanding staff to her medications. She wants them easily agitated, but generally more redirectable, no destruction of property, more pleasant per staff, seems to be approaching her baseline, currently on higher dose of Risperdal. Staff is noting improvement. No longer with any yelling episodes. No agitation. ASSESSMENT: The patient seems to be improving. PLAN: We will add on the side of caution, monitor for further 24 hours. JOB# [id number]
--- NOTE | 2019-04-05 16:17 | General Progress Note ---
Subjective - Review of Systems Service Date: 04/05/19 Subjective: resting comfortably no distress Objective - Results Result Diagrams: 03/30/19 15:43 03/30/19 15:43 Recent Labs: Laboratory Last Values WBC 10.7 Th/cmm (4.8-10.8) 03/30/19 15:43 RBC 4.14 Mil/cmm (3.80-5.10) 03/30/19 15:43 Hgb 12.9 gm/dL (12-16) 03/30/19 15:43 Hct 37.7 % (41.0-60) L 03/30/19 15:43 MCV 91.1 fl (81-100) 03/30/19 15:43 MCH 31.2 pg (27.0-31.0) H 03/30/19 15:43 MCHC Differential 34.2 pg (28.0-36.0) 03/30/19 15:43 RDW 16.0 % (11.5-20.0) 03/30/19 15:43 Plt Count 243 Th/cmm (150-400) 03/30/19 15:43 MPV 8.2 fl 03/30/19 15:43 Neutrophils % 65.6 % (40.0-80.0) 03/30/19 15:43 Lymphocytes % 26.1 % (20.0-50.0) 03/30/19 15:43 Monocytes % 5.8 % (2.0-10.0) 03/30/19 15:43 Eosinophils % 2.2 % (0.0-5.0) 03/30/19 15:43 Basophils % 0.3 % (0.0-2.0) 03/30/19 15:43 Sodium 136 mEq/L (136-145) 03/30/19 15:43 Potassium 4.0 mEq/L (3.5-5.1) 03/30/19 15:43 Chloride 102 mEq/L (98-107) 03/30/19 15:43 Carbon Dioxide 27.3 mEq/L (21.0-31.0) 03/30/19 15:43 Anion Gap 10.7 (7.0-16.0) 03/30/19 15:43 BUN 10 mg/dL (7-25) 03/30/19 15:43 Creatinine 0.7 mg/dL (0.6-1.2) 03/30/19 15:43 Est GFR ( Amer) > 60.0 ml/min (>90) 03/30/19 15:43 Est GFR (Non-Af Amer) > 60.0 ml/min 03/30/19 15:43 BUN/Creatinine Ratio 14.3 03/30/19 15:43 Glucose 95 mg/dL (70-105) 03/30/19 15:43 Calcium 8.7 mg/dL (8.6-10.3) 03/30/19 15:43 Total Bilirubin 0.2 mg/dL (0.3-1.0) L 03/30/19 15:43 AST 13 U/L (13-39) 03/30/19 15:43 ALT 11 U/L (7-52) 03/30/19 15:43 Alkaline Phosphatase 73 U/L (34-104) 03/30/19 15:43 Total Protein 6.3 gm/dL (6.0-8.3) 03/30/19 15:43 Albumin 3.8 gm/dL (3.7-5.3) 03/30/19 15:43 Globulin 2.5 gm/dL 03/30/19 15:43 Albumin/Globulin Ratio 1.5 (1.0-1.8) 03/30/19 15:43 Triglycerides 196 mg/dL (<150) H 03/30/19 15:43 Cholesterol 170 mg/dL (<200) 03/30/19 15:43 LDL Cholesterol Direct 90 mg/dL (75-193) 03/30/19 15:43 HDL Cholesterol 60 mg/dL (23-92) 03/30/19 15:43 TSH 0.47 uIU/ml (0.34-5.60) 03/30/19 15:43 RPR NONREACTIVE (NONREACTIVE) 03/30/19 15:43 - Physical Exam Vitals and I&O: Vital Signs Temp 97.6 F 04/05/19 14:54 Pulse 90 04/05/19 14:54 Resp 20 04/05/19 14:54 BP 132/72 04/05/19 14:54 Pulse Ox 94 04/05/19 14:54 Intake & Output 04/04/19 04/05/19 04/05/19 18:59 06:59 18:59 Intake Total 1320 240 Balance 1320 240 Intake: Oral 1080 240 Other 240 Other: # Voids 3 1 # Bowel Movements 1 Active Medications: Current Medications Acetaminophen (Tylenol) 650 mg PO Q6H PRN PRN Reason: Pain (Mild) Stop: 05/29/19 18:18 Last Admin: 04/04/19 10:54 Dose: 650 mg Al Hydrox/Mg Hydrox/Simethicone (Maalox) 30 ml PO Q4HR PRN PRN Reason: GI DISTRESS Stop: 05/29/19 20:07 Gabapentin (Neurontin) 600 mg PO Q8HR MONA Stop: 05/29/19 20:59 Last Admin: 04/05/19 13:33 Dose: 600 mg Ibuprofen (Motrin) 600 mg PO Q8H PRN PRN Reason: Pain (Moderate) Stop: 05/29/19 18:18 Last Admin: 04/05/19 13:31 Dose: 600 mg Lorazepam (Ativan) 1 mg PO Q4HR PRN; Protocol PRN Reason: Agitation Stop: 04/29/19 20:07 Last Admin: 04/05/19 13:33 Dose: 1 mg Magnesium Hydroxide (Milk Of Magnesia) 30 ml PO HS PRN PRN Reason: Constipation Multivitamins/Vitamin C (Theragran) 1 tab PO DAILY MONA Stop: 05/30/19 08:59 Last Admin: 04/05/19 08:01 Dose: 1 tab Oxycodone HCl (Oxycontin) 10 mg PO 1730 MONA Stop: 05/29/19 17:29 Last Admin: 04/04/19 17:36 Dose: 10 mg Oxycodone HCl (Oxycodone Ir) 10 mg PO Q6H PRN PRN Reason: SEVERE PAIN (LEVEL 7-10) Stop: 05/29/19 22:14 Last Admin: 04/05/19 11:02 Dose: 10 mg Risperidone (Risperdal) 2 mg PO HS [facility]; Protocol Stop: 05/30/19 20:59 Last Admin: 04/04/19 20:33 Dose: 2 mg Risperidone (Risperdal) 2 mg PO DAILY [facility]; Protocol Stop: 06/01/19 08:59 Last Admin: 04/05/19 08:05 Dose: 2 mg Trazodone HCl (Desyrel) 50 mg PO HS [facility]; Protocol Stop: 05/30/19 20:59 Last Admin: 04/04/19 20:33 Dose: 50 mg Venlafaxine HCl (Effexor Xr) 150 mg PO DAILY [facility]; Protocol Stop: 06/03/19 08:59 Last Admin: 04/05/19 08:02 Dose: 150 mg General: No acute distress HEENT: Atraumatic, PERRLA Neck: Supple, JVD, Thyromegaly Cardiovascular: Regular rate, Normal S1, Normal S2 Lungs: Clear to auscultation Abdomen: Bowel sounds, Soft Assessment/Plan - Assessment Assessment: 1.HTN. 2.COPD. 3.DJD. 4.PSYCHOSIS - Plan Plan: continue current treatment Nutritional Asmnt/Malnutr-PDOC - Dietary Evaluation Malnutrition Findings (Please click <Entered> for more info): Nutritional Asmnt/Malnutrition Start: 04/02/19 13: 11 Text: Status: Active Freq: Protocol: Document 04/02/19 13:11 CHRISTY (Rec: 04/02/19 13:15 CHRISTY [email or web address]) Nutritional Asmnt/Malnutrition Patient General Information Nutritional Screening Moderate Risk Diagnosis Psychosis Pertinent Medical Hx/Surgical Hx COPD, Degenerative joint disease, recent pelvic bone fracture, psychosis, chronic pain, Schizo bipolar Subjective Information Pt is a 63-year-old female admitted on 03/30 c/o increased aggressive behavior. Per Meal/ Nutrition Activity Record, Pt PO intake 100% meals since admission. HT: 5 WT: 200 LB (90.91 kg) ADJ BW: 63.66 kg BMI: 39.10 (Obese) GI: WNL, Soft, Non-Tender BM: Not noted I/O: 120/Not Noted Skin: WNL, Intact Nawaf: 20 Diet Order: Regular Estimated Energy Needs: (Obese , ADJ BW) 9932-8583 kcals (20-25 kcals/ kg) 51-58g Pro (0.8-0.9 g/kg) 9020-6844 ml (25-30 ml/kg) Pt is eating 100% of meals Per Meal/Nutrition Activity Record. Dietary is currently providing an estimated 2613 kcals and 114 gm Pro to meet 100% kcal and 100% Pro needs. Current Diet Order/ Nutrition Support Regular Pertinent Medications Maalox (PRN), MOM (PRN), Theragran Pertinent Labs 03/30: Hgb/Hct 12.9/37.7 Nutritional Hx/Data Height 1.52 m Height (Calculated Centimeters) 152.4 Current Weight (lbs) 90.718 kg Weight (Calculated Kilograms) 90.7 Weight (Calculated Grams) 43313.5 [place] Body Weight 45.5 kg % [place] Body Weight 200 Body Mass Index (BMI) 39.0 Weight Status Obese GI Symptoms GI Symptoms None Last BM Not noted Skin Integrity/Comment: WNL, Intact Nawaf: 20 Current %PO Good (75-100%) Estimated Nutritional Goals BEE in Kcals: Adj wt of IBW Calories/Kcals/Kg 20-25 Kcals Calculated 5161-5326 Protein: Adj wt of IBW Protein g/k.8-0.9 Protein Calculated 51-58 Fluid: ml 4524-4795 ml (25-30 ml/kg) Nutritional Problem No current Nutrition Prob Problem No nutrition diagnosis at this time. Etiology N/A Signs/Symptoms: N/A Malnutrition Related to Morbid Obesity Malnutrition related to morbid obesity No Intervention/Recommendation Comments 1.Continue with regular diet as ordered. Expected Outcomes/Goals Expected Outcomes/Goals 1.PO intake to continue to meet >75% of nutritional needs . 2.Monitor PO intake, wt, nutrition related labs, and skin integrity. 3.F/U as low risk in 7 days,
[2019-04-06] MEDS: oxyCODONE 5 mg IR Tab PO PRN ×3 (00:37→14:39)
[2019-04-06] MEDS: Multivitamin Tab PO SCH (08:17)
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
== END 2019-04-06 17:40 | DRG 885 ==
LOC: ER 15:18 → GERO 17:25
PROVIDERS: ADMIT Psychiatry & Neurology Psychiatry; ATTEND Psychiatry & Neurology Psychiatry
DX: F31.9 Bipolar disorder, unspecified (principal); J44.9 Chronic obstructive pulmonary disease, unspecified; M19.90 Unspecified osteoarthritis, unspecified site; F29 Unspecified psychosis not due to a substance or known physiological condition; G89.29 Other chronic pain; F17.210 Nicotine dependence, cigarettes, uncomplicated
CPT/HCPCS: 36415-UA; 80053-TC; 80061-TC; 83036-90; 84443-TC; 85025-TC; 86592-TC; 93005; G0410; J1200; J1630; Z7610

== ENCOUNTER 2019-10-03 18:49 | Inpatient (IN) | payer MEDICARE, OTHER ==
[2019-10-04 01:35] VITALS: BP 137/81
[2019-10-04] MEDS ORDERED: Maalox 30 mL Cup PO PRN (02:13)
[2019-10-04] MEDS ORDERED: Magnesium Hydroxide (MOM) 30 mL UDC PO PRN (02:33)
[2019-10-04] MEDS ORDERED: Fleet Enema 135 mL RC SCH (02:45)
[2019-10-04] MEDS: APAP/Oxycodone 5/325mg Tab PO PRN ×3 (04:51→20:50)
[2019-10-04] MEDS ORDERED: Haloperidol Lactate 5 mg/mL 1mL Vial IM ONE (06:00)
[2019-10-04] MEDS: Multivitamin Tab PO SCH (10:00)
[2019-10-04] MEDS ORDERED: APAP/Oxycodone 5/325mg Tab PO PRN (10:45)
[2019-10-04] MEDS ORDERED: Fleet Enema 135 mL RC PRN (13:52)
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
[2019-10-05] MEDS: APAP/Oxycodone 5/325mg Tab PO PRN ×4 (02:00→20:23)
--- NOTE | 2019-10-05 07:26 | Progress Notes ---
DATE: 10/05/2019 SUBJECTIVE: Chart reviewed and the patient interviewed. Also discussed the patient's condition with the staff and reviewed records and labs. The patient is still yelling and screaming and the patient is still argumentative. She also is intrusive to others and she is still verbally abusive to staff. The patient yesterday after being given emergency medicine Haldol, Ativan and Benadryl. She also still has severe mood swings and gets angry for no apparent reason. Otherwise, the patient is compliant with taking her medications. PATIENT'S MENTAL STATUS EXAMINATION: The patient is disheveled. Irritable mood. Disorganized thoughts. Angry and agitated. ASSESSMENT: The patient is still psychotic and agitated and can be dangerous to others. TREATMENT PLAN: We will increase Risperdal to 2 mg twice a day. Also, we will give Ativan in a dose of 1 mg every 4 hours on a p.r.n. basis. Also, continue to monitor behavior and agitation. ESTIMATED LENGTH OF STAY: 4-6 days. REASON FOR CONTINUED HOSPITAL STAY: The patient is still agitated and aggressive and argumentative. JOB# [id number]
[2019-10-05] MEDS: Multivitamin Tab PO SCH (08:31)
[2019-10-05] MEDS ORDERED: APAP/Oxycodone 5/325mg Tab PO PRN (11:37)
[2019-10-06] MEDS: APAP/Oxycodone 5/325mg Tab PO PRN ×4 (05:54→21:25)
[2019-10-06] MEDS: Multivitamin Tab PO SCH (09:07)
--- NOTE | 2019-10-06 18:54 | Progress Notes ---
DATE: 10/06/2019 SUBJECTIVE: Chart was reviewed and patient interviewed. Also discussed patient's condition with the staff and reviewed records and labs. The patient still has episodes of yelling and screaming and verbal abuse to staff, but seems to be less than yesterday since I increased her Risperdal to 2 mg twice a day. The patient also is still easily agitated and anxious. She also still has mood swings. Otherwise, patient is compliant with taking Effexor with no side effects. During interview, patient is unkempt. Anxious. Labile affect. Denies hallucination, but seems to be paranoid. ASSESSMENT: The patient is still agitated and needs close monitoring. TREATMENT PLAN: Continue to monitor patient's behavior and condition closely. Also, continue adjusting psychotropic medications. Also, patient said that she was taking Effexor XR in a dose of 150 mg and we will restart the patient on Effexor. At the same time, we will continue working on behavioral modifications and followup. ESTIMATED LENGTH OF STAY: 2-4 days. REASON TO CONTINUE HOSPITAL STAY: The patient is still agitated and psychotic and needs medication adjustment. JOB# [id number]
[2019-10-07] MEDS: APAP/Oxycodone 5/325mg Tab PO PRN ×4 (01:30→18:48)
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
[2019-10-07] MEDS: Multivitamin Tab PO SCH (09:06)
--- NOTE | 2019-10-07 11:22 | Internal Medicine Prog Note ---
Internal Medicine Subjective - Subjective Service Date: 10/07/19 Patient seen and examined:: with staff Patient is:: awake Per staff patient has:: tolerating meds Internal Medicine Objective - Physical Exam Vitals and I&O: Vital Signs Temp 97.8 F 10/07/19 05:23 Pulse 91 10/07/19 05:23 Resp 20 10/07/19 05:23 BP 159/97 10/07/19 05:23 Pulse Ox 95 10/07/19 05:23 Intake & Output 10/06/19 10/07/19 10/07/19 18:59 06:59 18:59 Intake Total 1100 Balance 1100 Intake: Oral 1100 Other: # Voids 3 # Bowel Movements 1 0 Active Medications: Current Medications Acetaminophen (Tylenol) 650 mg PO Q4HR PRN PRN Reason: Temperature Above 100 Stop: 12/03/19 02:12 Last Admin: 10/07/19 06:00 Dose: 650 mg Al Hydrox/Mg Hydrox/Simethicone (Maalox) 30 ml PO Q4HR PRN PRN Reason: GI DISTRESS Stop: 12/03/19 02:12 Last Admin: 10/07/19 00:14 Dose: 30 ml Baclofen (Lioresal) 10 mg PO Q6H PRN PRN Reason: MUSCLE PAIN Stop: 12/03/19 13:43 Last Admin: 10/07/19 04:55 Dose: 10 mg Bisacodyl (Dulcolax 10 Mg Supp) 10 mg RC Q24H PRN PRN Reason: costipation Stop: 12/03/19 02:32 Docusate Sodium (Colace) 100 mg PO DAILY [facility] Stop: 12/04/19 08:59 Last Admin: 10/07/19 09:06 Dose: 100 mg Gabapentin (Neurontin) 300 mg PO 5XD [facility] Stop: 12/03/19 13:59 Last Admin: 10/07/19 09:06 Dose: 300 mg Ibuprofen (Motrin) 800 mg PO Q8H PRN PRN Reason: MILD PAIN 1-3 Stop: 12/04/19 11:37 Last Admin: 10/07/19 09:50 Dose: 800 mg Lorazepam (Ativan) 1 mg PO Q4H PRN; Protocol PRN Reason: Anxiety Stop: 12/03/19 14:29 Last Admin: 10/07/19 10:45 Dose: 1 mg Magnesium Hydroxide (Milk Of Magnesia) 30 ml PO Q24H PRN PRN Reason: Constipation Stop: 12/03/19 02:32 Last Admin: 10/05/19 09:58 Dose: 30 ml Multivitamins/Vitamin C (Theragran) 1 tab PO DAILY [facility] Stop: 12/03/19 08:59 Last Admin: 10/07/19 09:06 Dose: 1 tab Oxycodone/Acetaminophen (Percocet 5/325mg Oral Tab) 2 tab PO Q4H PRN PRN Reason: Pain (Severe 7-10) Stop: 12/03/19 02:30 Last Admin: 10/07/19 07:41 Dose: 2 tab Oxycodone/Acetaminophen (Percocet 5/325mg Oral Tab) 1 tab PO Q4H PRN PRN Reason: MODERATE PAIN LEVEL 4 TO 6 Stop: 12/03/19 10:44 Risperidone (Risperdal) 2 mg PO DAILY [facility]; Protocol Stop: 12/06/19 08:59 Last Admin: 10/07/19 09:06 Dose: 2 mg Risperidone (Risperdal) 2 mg PO HS [facility]; Protocol Stop: 12/06/19 20:59 Sodium Phosphate (Fleet Enema) 135 ml RC Q24H PRN PRN Reason: CONSTIPATION Stop: 12/03/19 13:51 Trazodone HCl (Desyrel) 100 mg PO HS [facility]; Protocol Stop: 12/06/19 20:59 Venlafaxine HCl (Effexor Xr) 225 mg PO DAILY [facility]; Protocol Stop: 12/06/19 08:59 Last Admin: 10/07/19 09:07 Dose: 225 mg Zolpidem Tartrate (Ambien) 5 mg PO HS PRN PRN Reason: Insomnia Stop: 12/03/19 02:12 General: alert HEENT: NC/AT, PERRLA Neck: Supple Lungs: CTAB Cardiovascular: RRR, Normal S1, Normal S2, without murmur Abdomen: soft, non-tender, non-distended Neurological: alert Internal Medicine Assmt/Plan - Assessment Assessment: Psychosis Schizoaffective disorder Idiopathic peripheral autonomic neuropathy HTN LBP Artherosclerotic heart disease Hx cellulitis RLL - Plan Plan: patient is medically stable and cleared of discharged Continue current managements Monitor VS Monitor Labs Psych management per Psych Pain managment as needed. Monitor nutritional needs. Fall Precaution Continue collaboration with interdisciplinary team.
[2019-10-08] MEDS: APAP/Oxycodone 5/325mg Tab PO PRN ×3 (08:21→20:15)
[2019-10-08] MEDS: Multivitamin Tab PO SCH (09:25)
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
[2019-10-09] MEDS: APAP/Oxycodone 5/325mg Tab PO PRN ×4 (06:10→22:04)
[2019-10-09] MEDS: Multivitamin Tab PO SCH (08:18)
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
--- NOTE | 2019-10-10 07:20 | Progress Notes ---
DATE: 10/10/2019 SUBJECTIVE: The patient was seen in the room. The patient is awake, alert, appears to be guarded, easily gets frustrated with poor impulse control. Otherwise, the patient is in no acute distress. OBJECTIVE: VITAL SIGNS: Temperature 97.8, heart rate 95, blood pressure 136/83, respirations 20, 96% on room air. HEENT: Head is atraumatic and normocephalic. Eyes: Bilateral conjunctivae are clear. Bilateral pupils equal, round, reactive. NECK: Supple. No JVD. CARDIOVASCULAR: S1 and S2, without murmur. PULMONARY: Clear to auscultation. GASTROINTESTINAL: Soft and nontender without guarding. Positive bowel sounds. MUSCULOSKELETAL: No clubbing. No cyanosis noted. ASSESSMENT: 1. Schizoaffective disorder. 2. Neuropathy. 3. Hypertension. 4. Atherosclerotic heart disease. 5. Chronic pain syndrome. PLAN: We will keep the patient inpatient to Psychiatric Unit. We will follow up with a psychiatrist to monitor the patient's condition and behavior. We will put the patient on fall precautions. Treatment plans were discussed with the patient's nurse. Treatment plans were discussed with Dr. Mclaughlin. JOB# [id number]
[2019-10-10] MEDS: Multivitamin Tab PO SCH (08:36)
[2019-10-10] MEDS: APAP/Oxycodone 5/325mg Tab PO PRN ×3 (08:36→20:26)
[2019-10-11] MEDS: APAP/Oxycodone 5/325mg Tab PO PRN ×5 (01:28→19:09)
--- NOTE | 2019-10-11 02:01 | Progress Notes ---
DATE: 10/10/[address] Atkinson. IDENTIFYING DATA: A 63-year-old female with a history of schizoaffective disorder, reports that the recent augmentation of the lithium is tolerated. Mild sedation. Nursing staff reporting still flight of ideas, racing thoughts as early as yesterday, primary psychiatrist noting severe paranoia. Today on [id number] evaluation, he is very suspicious and paranoid in regards to the coronavirus she states that she has. When attempting to redirect her emotions, she becomes very irritable. ASSESSMENT AND PLAN: Schizoaffective disorder with recent augmentation of the lithium. Medication reconciliation reviewed, which includes gabapentin, lithium, Ativan as needed, oxycodone, risperidone 2 b.i.d., Effexor 225. JOB# [id number]
--- NOTE | 2019-10-11 08:04 | Progress Notes ---
DATE: 10/11/2019 SUBJECTIVE: Today on [id number] evaluation, the patient reports able to tolerate the lithium. She reports racing thoughts are less intense. ASSESSMENT AND PLAN: Schizoaffective, bipolar type. Tolerating the lithium. We will continue targeting the patient's symptoms with the recent addition of the lithium to continue to target the patient's ongoing racing thoughts. JOB# [id number]
[2019-10-11] MEDS: Multivitamin Tab PO SCH (08:42)
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
[2019-10-12] MEDS: Multivitamin Tab PO SCH (08:55)
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
[2019-10-12] MEDS: APAP/Oxycodone 5/325mg Tab PO PRN ×3 (09:37→20:16)
[2019-10-13] MEDS: APAP/Oxycodone 5/325mg Tab PO PRN ×3 (04:48→17:33)
--- NOTE | 2019-10-13 07:41 | Progress Notes ---
DATE: 10/13/2019 SUBJECTIVE: Chart was reviewed and the patient interviewed. Also discussed the patient's condition with the staff and reviewed the records and labs. The patient seems to be calmer and she is less intrusive and less irritable. She is also interacting more with peers and with others. The patient also denies any hallucinations, but she still seems to be slightly paranoid. The patient denies any thoughts of suicide or homicide. The patient is alert and oriented to time, place, person and situation. ASSESSMENT: The patient is still agitated, but seems to be less demanding and her manic behavior seems to be slightly less. TREATMENT PLAN: We will continue monitoring behavior and condition closely. Also, continue current psychotropic medications and lithium level will be done later on today. Also, continue working on her irritability and history for mood swings and her manic symptoms. ESTIMATED LENGTH OF STAY: 2-4 days. REASON FOR CONTINUED HOSPITAL STAY: The patient is still exhibiting manic symptoms and still needs close monitoring for her agitation. JOB# [id number]
[2019-10-13] MEDS: Multivitamin Tab PO SCH (08:28)
[2019-10-14] MEDS: APAP/Oxycodone 5/325mg Tab PO PRN ×4 (01:21→20:41)
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
[2019-10-14] MEDS: Multivitamin Tab PO SCH (08:18)
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
[2019-10-15] MEDS: APAP/Oxycodone 5/325mg Tab PO PRN (02:55)
--- NOTE | 2019-10-15 07:25 | Progress Notes ---
DATE: SUBJECTIVE: Chart was reviewed and patient interviewed. Also discussed patient's condition with the staff and reviewed records and labs. The patient is still having severe mood swings and she is still in irritable and angry mood. The patient also is still intrusive to others. She also still has difficulty sleeping at night. The patient also still has episodes of anger and demanding, especially when requesting medications. Otherwise, patient is compliant with taking her medications with no side effects of medications. The patient going around with her wheelchair. Vital signs are stable. [place] blood level came back to be 0.26, that was done yesterday. MENTAL STATUS EXAMINATION: Unkempt. Thought processes are circumstantial with flight of ideas. The patient denies hallucinations, but actively responding. Argumentative. ASSESSMENT: The patient is still exhibiting manic behavior. TREATMENT PLAN: We will continue monitoring her behavior and her condition closely. Also, we will increase lithium to 300 mg twice a day and we will continue to follow up closely. [facility]# [id number]
[2019-10-15] MEDS: Multivitamin Tab PO SCH (08:13)
[2019-10-15] MEDS ORDERED: APAP/Oxycodone 5/325mg Tab PO SCH (14:00)
[2019-10-15] MEDS ORDERED: APAP/Oxycodone 5/325mg Tab ONE (15:02)
[2019-10-15] MEDS: APAP/Oxycodone 5/325mg Tab PO SCH ×2 (15:06→21:14)
[2019-10-16] MEDS: Multivitamin Tab PO SCH (08:28)
[2019-10-16] MEDS: APAP/Oxycodone 5/325mg Tab PO SCH ×2 (08:29→14:16)
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
== END 2019-10-16 17:30 | DRG 885 ==
LOC: GERO 10-04 01:00
PROVIDERS: ADMIT Psychiatry & Neurology Psychiatry; ATTEND Psychiatry & Neurology Psychiatry
DX: F31.2 Bipolar disorder, current episode manic severe with psychotic features (principal); I10 Essential (primary) hypertension; I25.10 Atherosclerotic heart disease of native coronary artery without angina pectoris; G90.09 Other idiopathic peripheral autonomic neuropathy; G89.4 Chronic pain syndrome; Z86.14 Personal history of Methicillin resistant Staphylococcus aureus infection
CPT/HCPCS: 83036-90; 90899; G0410; J1200; J1630; J2060; Z7610